=== PATIENT | male | born 1940 | race Caucasian/White ===

== ENCOUNTER 2016-03-25 16:44 | Inpatient (IN) ==
[2016-03-25] MEDS ORDERED: NS 1,000 ML IV ONE (17:12)
--- NOTE | 2016-03-25 17:17 | PROVIDER DOCUMENTATION ---
HPI-General Adult - General Chief Complaint: Nose Bleed Stated Complaint: NOSE BLEED Time Seen by Provider: 03/25/16 17:11 Source: patient, family Allergies/Adverse Reactions: Patient Allergies Allergy/AdvReac Type Severity Reaction Status Date / Time No Known Allergies Allergy Verified 03/25/16 17:23 Home Medications: Bupropion HCl [Bupropion HCl Sr] 150 mg PO BID 02/19/14 Diltiazem HCl [Diltiazem ER] 240 mg PO DAILY 02/19/14 Levothyroxine Sodium 200 mcg PO DAILY 02/19/14 Lisinopril/Hydrochlorothiazide [Lisinopril-Hctz 20-25 mg Tab] 1 each PO DAILY Meloxicam 15 mg PO DAILY 02/19/14 PRAVAstatin [Pravachol] 40 mg PO DAILY 02/19/14 Pioglitazone HCl/Metformin HCl [Pioglitazone-Metformin 15-850] 1 each PO BID 07/29 Sitagliptin Phosphate [Januvia] 100 mg PO DAILY 02/19/14 Albuterol Sulfate [Proair Hfa] 8.5 gm IH DAILY PRN 04/11/15 Aspirin 81 mg PO DAILY 04/11/15 Diclofenac 1% Gel [Voltaren 1% Gel] 2 gm TOP TID PRN 04/11/15 Hydrocodone Bit/Acetaminophen [Hydrocodon-Acetaminophn 10-325] 10 mg PO TID PRN 04/11/15 Nitroglycerin [Nitrostat] 0.4 mg SL PRN PRN 04/11/15 Zolpidem [Ambien] 5 mg PO QHS 04/11/15 Fluticasone/Vilanterol [Breo Ellipta Inhaler] 1 each IH DAILY 03/25/16 - History of Present Illness -Gen Adult Nature of Presenting Problems: Pt is a 75 yom who presents to ER with CC of nosebleed in the R naris that started at 0900 today. Pt reports that he does not have a hx of nosebleeds, but reports that he had a minor nosebleed 3 days ago that lasted for a few minutes. Pt reports that he went to Urgent Care today around approximately 1600. Pt's B/ P was elevated and his HR was low (in the high 40s, low 50s; 35 at Urgent Care) . Pt has hx of COPD, but reports that he has become more sob every hour. Pt denies any pain, but does report feeling anxious/nervous. Pt does take a baby aspirin every morning and is taking rx for HTN. Location of Pain/Injury: reports: face (Nose) Pain Radiation: reports: no radiation Severity: reports: moderate Onset/Duration: reports: this morning (0900) Timing: reports: still present Modifying Factors: improves with: nothing Review of Systems - Adult - REVIEW OF SYSTEMS - ADULT Constitutional: denies: chills, fever, fatique Eyes: reports: no symptoms reported Ears, Nose, Mouth & Throat: reports: epistaxis, sinus problem. denies: nose pain Cardiovascular: reports: irregular heart rate. denies: chest pain, poor circulation, syncope Respiratory: denies: dyspnea on exertion, excessive sputum production, hemoptysis, shortness of breath Gastrointestinal: reports: no symptoms reported Genitourinary: reports: no symptoms reported Musculoskeletal: reports: no symptoms reported Integumentary: reports: no symptoms reported Neurological: reports: no symptoms reported Psychiatric: reports: no symptoms reported Endocrine: reports: no symptoms reported Hematologic/Lymphatic: reports: no symptoms reported Allergic/Immunologic: reports: no symptoms reported All Other Systems: Reviewed and Negative Past History - Adult - PAST MEDICAL HISTORY-ADULT Review of Records: reports: Nursing Assessment Review, Medications Reviewed Cardiovascular: reports: CAD, HTN, hyperlipidemia Endocrine/Immune: reports: Diabetes - PRIOR SURGERIES/PROCEDURES Surgical/Procedure History: reports: back/neck - IMMUNIZATION STATUS Childhood Immunizations: See Nurse Assessment Flu Vaccine: See Nurse Assessment Physical Exam-General - PHYSICAL EXAM-ADULT Initial Vital Signs Reviewed: Yes - CONSTITUTIONAL General Appearance: appears well, alert, mild distress - EYES Eyes: PERRL/EOMI, pink conjunctivae, fundi clear, no AV nicking - HEAD, EARS, NOSE, MOUTH & THROAT HENMT: normocephalic/atraumatic, moist mucous membranes - RESPIRATORY Respiratory: chest non-tender, lungs clear, normal breath sounds - CARDIOVASCULAR Cardiovascular: normal peripheral pulses, irregularly irregular - LYMPHATIC Lymphatic: no adenopathy - SKIN Integumentary: normal color, normal turgor, warm/dry - NEUROLOGIC Neurologic: grossly normal, no motor/sensory deficits - PSYCHIATRIC Psych/Mental Status: normal thought content, normal thought process, oriented x 3, anxious Progress - REASSESSMENT Reassessment #1 Time Reassessed: 17:51 Status: unchanged (Pt's nosebleed has not stopped; Dr. Villaseñor will perform a renal rocket) - EKG 1 Time of EKG reading by physician:: 17:04 EKG Read and Signed by:: Pita Villaseñor EKG Interpretation (*Must complete 3 of following elements*): Abnormal (L axis deviation; Prolonged QT) Rate: 64 Rhythm: undetermined rhythm - XRAY 1 XRAY: Bilateral XRAY Study: Chest Impression: See EMR Report XRAY Interpretation: Cardiomegaly with CHF - CONSULTS/PCP/HOSPITALIST Notification #1 *Consult/PCP/Hospitalist*: Dr. Rodriguez Time Discussed: 18:03 Consult Disposition: Admit Procedures - ENT PROCEDURES Epistaxis Management: Right Nasal Drops Instilled: Afrin, Lidocaine Nasal Rocket Insertion: Right Other Nasal Packing: Gauze Departure - Departure Time of Disposition Order: 18:06 DIAGNOSIS: Bradycardia, Hypoxia, Nosebleed CHF (congestive heart failure) Qualifiers: Congestive heart failure type: unspecified congestive heart failure type Congestive heart failure chronicity: unspecified congestive heart failure chronicity Qualified Code(s): I50.9 - Heart failure, unspecified Disposition: ADMITTED INPATIENT 09 Certified Medical Emergency: Emergent Condition: Stable Referrals: Terrance Meyers MD [Primary Care Provider] - Attestation - Scribe Verification/Attestation Scribe:: Vimal Hopkins Acting as Scribe for:: Pita Villaseñor Scribe documention review:: This chart was documented by a scribe and accurately reflects the service the provider performed and the decisions made by the provider.
[2016-03-25 17:29] LABS: MANUAL DIFF NEEDED? NO
[2016-03-25 17:32] LABS: BASO% 0.3 % (0.0-0.8); EOS# 0.31 X1000 (0.0-0.7); EOS% 2.5 % (0.0-10.0); HEMATOCRIT 31.1 % (42.0-52.0); HEMOGLOBIN 9.9 g/dL (14.0-18.0); IMM GRAN# 0.05 X1000 (0.0-0.04); IMM GRAN% 0.4 % (0.0-0.5); LYMPH% 8.2 % (20.5-51.1); MCH 29.5 PG (27-31); MCHC 31.8 g/dL (33-37); MCV 92.6 FL (81-99); MONO# 0.79 X1000 (0.11-0.59); MONO% 6.5 % (1.7-9.3); MPV 10.7 FL (7.4-10.4); NEUT% 82.1 % (42.2-75.2); PLT 292 X1000 (130-400); RBC 3.36 XMIL (4.7-6.1)
[2016-03-25] MEDS ORDERED: SILVER NITRATE APPLICATOR ONE (17:39)
[2016-03-25 17:43] LABS: INR 1.21; PROTIME 12.9 Seconds (9.2-11.7); PTT 29.1 Seconds (22.0-36.0)
[2016-03-25] MEDS ORDERED: XYLOCAINE 2% VISCOUS ONE (17:49)
[2016-03-25] MEDS ORDERED: AFRIN NASAL SPRAY ONE (17:49)
[2016-03-25 17:56] LABS: ALBUMIN 3.9 g/dL (3.5-5.0); CALCIUM 8.8 mg/dL (8.8-10.2); MAGNESIUM 2.1 mg/dL (1.5-2.7); POTASSIUM 4.7 mmol/L (3.5-5.1); TOTAL BILIRUBIN 0.33 mg/dL (0.20-1.00); TOTAL PROTEIN 8.2 g/dL (6.3-8.3)
[2016-03-25] MEDS ORDERED: NORCO-10 PO ONE (17:59)
[2016-03-25] MEDS ORDERED: ROCEPHIN 1 GM/NS 50 ML IV ONE (17:59)
[2016-03-25] MEDS ORDERED: LASIX IV ONE (18:12)
[2016-03-25] MEDS ORDERED: NITROGLYCERIN SL PRN (19:03)
[2016-03-25] MEDS ORDERED: ZOFRAN IV PRN (19:03)
[2016-03-25] MEDS ORDERED: NORVASC PO ONE (19:03)
[2016-03-25] MEDS ORDERED: TYLENOL PO PRN (19:03)
[2016-03-25] MEDS ORDERED: VENTOLIN HFA INH PRN (19:03)
[2016-03-25] MEDS ORDERED: CATAPRES PO PRN (19:03)
--- NOTE | 2016-03-25 19:11 | HISTORY AND PHYSICAL ---
HISTORY OF PRESENT ILLNESS: Mr. Antunez is a 75-year-old who suffered nosebleed today. He has had nosebleeds before, but this one did not seem to stop and ended up having to have some packing in that nose. He went [employer], but their concern was his blood pressure was elevated and that he was running a heart rate in the 40s and 50s. It appeared to be sinus bradycardia. He denies chest pain. The family seems to think he is more short of breath the last couple of days, but he denies that, but he apparently has pulmonary fibrosis, underlying COPD. He has a history of coronary artery disease, a heart attack in . I think he has had a recent heart catheterization 6 months ago and by his report it was okay. His original infarction was 11/26/2014. PAST MEDICAL HISTORY: He has history of hypertension, hyperlipidemia, diabetes mellitus type 2, dizziness, hypothyroidism, osteoarthritis, chronic back pain, sleep apnea obstructive. SURGICAL HISTORY: He has had 4 back surgeries and chronic back pain. He has to take pain medicine for that. He had a previous EKG 04/07/2015 which was normal sinus rhythm. CURRENT MEDICATION: I believe he is on Januvia 100 mg daily. Nitrostat as needed, sublingual tablets. Bupropion XR 150, 1 tablet twice a day. Diltiazem ER 240 mg a day, and I think he is on hydrocodone which he says he takes 10 mg 3-4 times a day. Ambien 5 mg at night. Lisinopril/hydrochlorothiazide 20-25, 1 tablet once a day. Meloxicam 15 mg daily. Aspirin 81 mg a day. Pioglitazone and metformin 15-850, 1 tab twice a day, pravastatin 40 mg a day, levothyroxine 200 mcg 1 tab by mouth, Anoro Ellipta 62.5/25 inhalation 1 puff as needed, ProAir as needed, Voltaren gel. ALLERGIES: No known drug allergies. PHYSICIANS: He is followed by Dr. Antunez. He is also followed by Dr. Etienne and Dr. Meyers. Dr. Etienne has seen him recently and started him on some Lasix. REVIEW OF SYSTEMS: General: No weight gain or loss. No fever or chills. HEENT: Unremarkable. Respiratory: Family seems to think he is more short of breath, but he denies that, but they feel like the last couple of weeks he seemed to be a little more short of breath. He denies change in cough or wheezing or pleuritic pain. Cardiovascular: Denies any chest pain, no palpitation. GI/: No change in bowels. No change in urination. PHYSICAL EXAMINATION: VITAL SIGNS: In the emergency room, temperature 98, pulse 40, respirations 20, blood pressure 171/46, O2 saturation 82%. That was on 3 L. HEENT: Pupils are equal and round. LUNGS: Clear with decreased breath sounds bibasilar. CARDIOVASCULAR: Regular rhythm and rate without murmur or S3. Rate right now is sinus rhythm in the 60s. ABDOMEN: Soft, nontender, nondistended. SKIN: Warm and dry. White blood cell count 12,240, hematocrit 31, platelet count 292,000. Sodium 130, potassium 4.7, chloride 96, bicarb 20, BUN 48, creatinine 1.8. ProTime 12.9, INR 1.21. Here in the emergency room they had given some Rocephin, his medications at home the list pretty much matches what I stated. ASSESSMENT AND PLAN: 1. Sinus bradycardia. He is on Cardizem. I think for now I will cut back on the Cardizem. He is having a nosebleed in the face of some elevated blood pressure. So I want to see if maybe I can increase his medications. I will add another 20 mg of lisinopril in the evening and he will take the lisinopril/hydrochlorothiazide 20/25 in the morning and 20 mg in the evening and maybe add Norvasc to his regimen. 2. Nosebleed. Hold the aspirin for now. Note he is also on meloxicam and I think maybe we ought to hold both of those. 3. Hypercholesterolemia. 4. Diabetes mellitus type 2. Check pattern sugars. Continue his pioglitazone metformin and sitagliptin. 5. Hypertension. 6. He is on Wellbutrin, I believe for anxiety. 7. Pulmonary fibrosis. Underlying chronic obstructive pulmonary disease. Aware. Chest x-ray from 01/02/2016, increased interstitial markings believed to be fibrosis. 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 We will ask Dr. Etienne to follow as he is on already. 8. Current laboratory: White count 12,240, hematocrit 31, platelet count 292,000. Sodium 133, potassium 4.7, chloride 96, bicarb 20, BUN 48, creatinine 1.8. CPK was 95, troponin less than 0.01. ProBNP is 4401. 9. It may be worthwhile that he has had an echocardiogram done in March 2015, left ventricle ventricular was not completely visualized, but appears to be dilated in size. Left ventricular thickness normal. Left ventricular ejection fraction estimated to be 60%. No obvious isolated wall-motion abnormalities. Left atrium may be mildly dilated. No pericardial effusion. Mitral valve was intact. Trivial mitral regurgitation. Trivial tricuspid regurgitation. Peak pulmonary artery pressure difficult to assess and estimated at around 30 mmHg for a right-sided pressure. Had a heart catheterization done 04/11/2015. We will ask Cardiology to evaluate his rate and overall status. I think right now, I am just going to try and change his medications to see if it will improve the bradycardia and improve the blood pressure.
[2016-03-25] MEDS: NS 1,000 ML IV SCH (20:09)
[2016-03-25] MEDS ORDERED: ACTOS PO SCH (21:00)
[2016-03-25] MEDS ORDERED: AMBIEN PO SCH (21:00)
[2016-03-25] MEDS: WELLBUTRIN SR PO SCH (22:52)
[2016-03-25] MEDS: GLUCOPHAGE PO SCH (22:52)
[2016-03-25] MEDS: NORCO-10 PO PRN (22:52)
--- NOTE | 2016-03-26 05:42 | EKG Report ---
Test Performed on : 03/25/2016 5:04:15 PM Test Reason : Chest Pain Blood Pressure : / mmHG Vent. Rate : 064 BPM Atrial Rate : 064 BPM P-R Int : 240 ms QRS Dur : 116 ms QT Int : 482 ms P-R-T Axes : 081 -33 043 degrees QTc Int : 497 ms Undetermined rhythm Left axis deviation Prolonged QT Abnormal ECG When compared with ECG of 25-MAR-2016 17:03, (Unconfirmed) Current undetermined rhythm precludes rhythm comparison, needs review Criteria for Inferior infarct are no longer present T wave amplitude has decreased in Inferior leads Nonspecific T wave abnormality has replaced inverted T waves in Lateral leads QT has lengthened Unconfirmed Result
[2016-03-26 06:27] LABS: MANUAL DIFF NEEDED? NO
[2016-03-26] MEDS: NS 1,000 ML IV SCH ×3 (06:28→22:47)
[2016-03-26 06:35] LABS: BASO% 0.3 % (0.0-0.8); EOS# 0.65 X1000 (0.0-0.7); EOS% 5.5 % (0.0-10.0); HEMATOCRIT 29.9 % (42.0-52.0); HEMOGLOBIN 9.3 g/dL (14.0-18.0); IMM GRAN# 0.03 X1000 (0.0-0.04); IMM GRAN% 0.3 % (0.0-0.5); LYMPH# 1.68 X1000 (1.2-3.4); LYMPH% 14.2 % (20.5-51.1); MCHC 31.1 g/dL (33-37); MCV 93.1 FL (81-99); MONO# 0.96 X1000 (0.11-0.59); MONO% 8.1 % (1.7-9.3); MPV 10.6 FL (7.4-10.4); NEUT% 71.6 % (42.2-75.2); PLT 274 X1000 (130-400); RBC 3.21 XMIL (4.7-6.1)
[2016-03-26 06:42] LABS: INR 1.24; PROTIME 13.2 Seconds (9.2-11.7); PTT 28.5 Seconds (22.0-36.0)
[2016-03-26] MEDS: NORCO-10 PO PRN ×2 (06:43→21:04)
[2016-03-26 06:45] LABS: ALBUMIN 3.6 g/dL (3.5-5.0); MAGNESIUM 2.1 mg/dL (1.5-2.7); POTASSIUM 4.5 mmol/L (3.5-5.1); TOTAL BILIRUBIN 0.21 mg/dL (0.20-1.00); TOTAL PROTEIN 7.5 g/dL (6.3-8.3)
--- NOTE | 2016-03-26 07:36 | EKG Report ---
Test Performed on : 03/26/2016 06:56:32 AM Test Reason : bradycardia Blood Pressure : / mmHG Vent. Rate : 045 BPM Atrial Rate : 045 BPM P-R Int : 154 ms QRS Dur : 116 ms QT Int : 502 ms P-R-T Axes : 014 -20 073 degrees QTc Int : 434 ms Sinus bradycardia. with premature atrial complexes. Leftward axis not deviated Abnormal ECG When compared with ECG of 26-MAR-2016 06:56, (Unconfirmed) Nonspecific ST abnormality flattening 1 and AVL Poor R-wave progression V1-V4 Clinical Correlation advised Confirmed by Galo Diamond DO ([id number]) on 03/27/2016 7:28:38 PM
--- NOTE | 2016-03-26 08:11 | Diag Imaging Result Document ---
PROCEDURE NAME: CHEST-PORTABLE - 03/25/2016 AP PORTABLE CHEST AT 1715 HOURS: FINDINGS: There is cardiomegaly. There is interstitial opacity throughout both lungs. The lungs are not as well expanded as on 01/02/2016, but otherwise there has been no significant change considering differences in technique. IMPRESSION: Probable interstitial pulmonary fibrosis. Cardiomegaly.
[2016-03-26] MEDS ORDERED: SYNTHROID PO SCH (09:00)
[2016-03-26] MEDS ORDERED: BREO ELLIPTA 100/25 MCG INH INH SCH (09:00)
[2016-03-26 09:50] LABS: HEMOGLOBIN A1C 5.9 % (4.8-6.0)
[2016-03-26] MEDS: JANUVIA PO SCH (09:51)
[2016-03-26] MEDS: PRINZIDE 10/12.5MG PO SCH (09:51)
[2016-03-26] MEDS: GLUCOPHAGE PO SCH ×2 (09:52→21:55)
[2016-03-26] MEDS: WELLBUTRIN SR PO SCH ×2 (09:52→21:55)
[2016-03-26] MEDS: PRAVACHOL PO SCH (09:52)
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
--- NOTE | 2016-03-26 14:08 | EKG Report ---
Test Performed on : 03/26/2016 1:26:01 PM Test Reason : heart block/bradycardia Blood Pressure : / mmHG Vent. Rate : 041 BPM Atrial Rate : 076 BPM P-R Int : 000 ms QRS Dur : 118 ms QT Int : 510 ms P-R-T Axes : 049 -15 051 degrees QTc Int : 420 ms Sinus rhythm. with 2nd degree SA block (Mobitz II). Non-Wenckebach type (cannot r/o junctional escape beat at end of rhythm strip) Abnormal ECG When compared with ECG of 26-MAR-2016 06:56, (Unconfirmed) Confirmed by Galo Diamond DO ([id number]) on 03/28/2016 6:02:26 PM
[2016-03-26] MEDS: SYNTHROID PO SCH (16:51)
--- NOTE | 2016-03-26 19:08 | PROGRESS NOTE ---
DATE: 03/26/2016 SUBJECTIVE: Mr. Antunez has felt good. He wants to go home. The monitor did call though, and he looks like he may have more signs of a significant second-degree AV block. He had some nonconducted PACs that Dr. Maguire was concerned about, so the plan is to keep him here. We will take out his nasal packing. PHYSICAL EXAMINATION: Vital Signs: Temperature 97.6 degrees, pulse 42, respirations 20, blood pressure 152/60. Lungs: Clear in all lung acevedo. Cardiovascular: Regular rhythm and rate without murmur or S3. Abdomen: Soft. Skin: Warm and dry. Urine Output: Was 1250 mL. LABORATORIES: Reviewed from today, white count 11,810, hematocrit 29, platelet count 274,000. Chemistries: Sodium 140, potassium 4.5, chloride 102, BUN 43, creatinine 1.15. EKG from this morning showed sinus rhythm with complete heart block and junctional bradycardia. Occasional premature ventricular complex. ASSESSMENT AND PLAN: 1. Complete heart block with bradycardia. I suspect that he will need a pacemaker. We have stopped his Cardizem. We will monitor him tonight. 2. Chronic dyspnea with underlying pulmonary fibrosis, aware. 3. Obesity. Body mass index is 38. 4. Mild coronary artery disease demonstrated by a heart catheterization on 04/06/2015. 5. Review of his orders, continue present orders. I do not see any change to do at this time. 6. He also has diabetes. Blood sugars are being monitored. They are doing well.
[2016-03-26] MEDS ORDERED: AMBIEN PO SCH (19:35)
[2016-03-27] MEDS: NS 1,000 ML IV SCH (04:10)
[2016-03-27] MEDS: NORCO-10 PO PRN ×2 (04:21→10:28)
--- NOTE | 2016-03-27 06:15 | EKG Report ---
Test Performed on : 03/27/2016 05:47:21 AM Test Reason : heart block/bradycardia Blood Pressure : / mmHG Vent. Rate : 042 BPM Atrial Rate : 042 BPM P-R Int : 256 ms QRS Dur : 108 ms QT Int : 558 ms P-R-T Axes : 030 -34 047 degrees QTc Int : 465 ms Marked sinus bradycardia. with 1st degree AV block. Left axis deviation Cannot rule out Anterior infarct (cited on or before 26-MAR-2016) Abnormal ECG When compared with ECG of 26-MAR-2016 13:26, (Unconfirmed) ST less elevated in in the precordial leads T wave amplitude has decreased in V1-V3 Persistant P wave? with unconducted QRS to follow normal P-QRS (dropped beatt?) Mobitz Type II - See Mar 26, 2016 Confirmed by Galo Diamond DO ([id number]) on 03/28/2016 6:26:10 PM
[2016-03-27 08:07] VITALS: BP 158/61
[2016-03-27] MEDS: SYNTHROID PO SCH (08:43)
[2016-03-27] MEDS: WELLBUTRIN SR PO SCH (08:44)
[2016-03-27] MEDS: PRINZIDE 10/12.5MG PO SCH (08:44)
[2016-03-27] MEDS: PRAVACHOL PO SCH (08:44)
[2016-03-27] MEDS: JANUVIA PO SCH (08:44)
[2016-03-27] MEDS: GLUCOPHAGE PO SCH (08:44)
--- NOTE | 2016-03-27 09:49 | PROGRESS NOTE ---
DATE: 03/27/2016 CHIEF COMPLAINT: Shortness of breath and bradycardia. SUBJECTIVE: Mr. Antunez still complains of significant shortness of breath when getting up and about. He denies having chest pain. OBJECTIVE: His pulse rate has remained in the low 40s, as low as 38. His seismology technical officer suggests the presence of second-degree A-V block or Mobitz type II. His EKGs at some point have shown AV dissociation. PHYSICAL EXAMINATION: Vital signs: Blood pressure is 165/44, pulse 40, temperature 97.6, respirations 18. General: He is awake, alert, obese, in no distress. HEENT: Unremarkable. Chest: Diminished breath sounds bilaterally with some crepitance. Cardiac: Heart sounds regular, rhythmic, slow, systolic murmur noted. Abdomen: Obese, nontender, no masses, no hepatomegaly. Extremities: Diminished pulses, trace edema. Neurological: He moves 4 extremities. BLOOD WORK: Of note, his lab work shows that his sedimentation rate is very high at 105 mm/h. consistent with active pulmonary fibrosis. His BUN is 43, creatinine 1.5. His C-reactive protein was 17.20. His chest x-ray on admission showed probable interstitial pulmonary fibrosis. IMPRESSION: 1. Patient presenting with bradycardia and increasing dyspnea. He appears to be in second-degree A-V block. He has been off of diltiazem for more than 48 hours, and he still remains bradycardic and showing episodes of Mobitz type II second degree AV block. 2. Pulmonary fibrosis, interstitial, active. 3. Close to morbid obesity. 4. Diabetes mellitus type 2. 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 I will send the patient to [facility] for EP evaluation, possible implantation of a permanent pacemaker. I explained this to the patient and family in detail. They are in agreement. Will make arrangements today. [facility]
[2016-03-27] MEDS ORDERED: MILK OF MAGNESIA PO ONE (10:16)
--- NOTE | 2016-03-27 10:32 | EKG Report ---
Test Performed on : 03/27/2016 09:08:50 AM Test Reason : rythm changes Blood Pressure : / mmHG Vent. Rate : 043 BPM Atrial Rate : 043 BPM P-R Int : 266 ms QRS Dur : 098 ms QT Int : 520 ms P-R-T Axes : 039 -32 012 degrees QTc Int : 439 ms Marked sinus bradycardia. with 1st degree AV block. Left axis deviation Nonspecific ST abnormality Abnormal ECG When compared with ECG of 27-MAR-2016 05:47, (Unconfirmed) No significant change was found Confirmed by Galo Diamond DO ([id number]) on 03/28/2016 6:28:50 PM
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
== END 2016-03-27 10:55 | disposition short-term general hospital (02) | DRG 310 ==
LOC: ED 16:44 → EDIPHOLD 19:04 → 3N 19:54 → 3S 03-26 19:33
PROVIDERS: ATTEND Internal Medicine
DX: I44.1 Atrioventricular block, second degree (principal); J84.10 Pulmonary fibrosis, unspecified; E11.9 Type 2 diabetes mellitus without complications; R04.0 Epistaxis; I49.1 Atrial premature depolarization; I25.10 Atherosclerotic heart disease of native coronary artery without angina pectoris; I25.2 Old myocardial infarction; I10 Essential (primary) hypertension; E78.00 Pure hypercholesterolemia, unspecified; E03.9 Hypothyroidism, unspecified; M19.90 Unspecified osteoarthritis, unspecified site; G47.33 Obstructive sleep apnea (adult) (pediatric); E66.9 Obesity, unspecified; F41.9 Anxiety disorder, unspecified; Z79.899 Other long term (current) drug therapy; Z79.82 Long term (current) use of aspirin; Z68.38 Body mass index [BMI] 38.0-38.9, adult; Z87.891 Personal history of nicotine dependence
CPT/HCPCS: 71010; 80053; 82550; 82948; 83036; 83735; 83880; 84443; 84484; 85025; 85379; 85610; 85651; 85730; 86140; 93005; 93010; 94761; 96365; 96375; J0696; J1940; J7030